=== PATIENT | male | born 1975 | race Two or more races ===

== ENCOUNTER 2021-12-18 06:03 | Day surgery (SDC) | payer OTHER ==
[~2021-12-18 06:03] MED LIST: CIPRO500 MG PO; CLARITIN10 M1 PO; ENDOCET 5/325 T1 TAB PO; FLAGYL500MG PO; KALETRA 200-501 EACH PO; PRAVASTATIN SOD20 MG PO; TRELEGY ELLIPT1 EAC1 IH; TRUVADA 200 MG1 EACH PO
== END 2021-12-18 14:55 | disposition home or self-care (01) ==
LOC: CIR.AMB 06:03
PROVIDERS: ATTEND Colon & Rectal Surgery
DX: D23.5 Other benign neoplasm of skin of trunk (principal); K60.0 Acute anal fissure; B20 Human immunodeficiency virus [HIV] disease; Z20.822 Contact with and (suspected) exposure to COVID-19

== ENCOUNTER 2021-12-22 14:39 | Emergency (ER) | payer OTHER ==
[~2021-12-22] VITALS: Ht 177.8 cm; Wt 90.3 kg
== END 2021-12-22 17:31 | disposition home or self-care (01) ==
LOC: ER 14:39
DX: K62.5 Hemorrhage of anus and rectum (principal); K60.4 Rectal fistula; Z88.6 Allergy status to analgesic agent

== ENCOUNTER 2022-05-08 08:11 | Day surgery (SDC) | payer OTHER | END 2022-05-08 16:35 | disposition home or self-care (01) | LOC: CIR.AMB 08:11 | PROVIDERS: ATTEND Colon & Rectal Surgery | DX: K60.3 Anal fistula (principal); K60.5 Anorectal fistula; K92.1 Melena; K57.32 Diverticulitis of large intestine without perforation or abscess without bleeding; F17.210 Nicotine dependence, cigarettes, uncomplicated; Z20.822 Contact with and (suspected) exposure to COVID-19 ==